=== PATIENT | female | born 1975 | race Asian ===

== ENCOUNTER 2025-02-07 17:18 | Emergency (ER) | payer BC ==
[~2025-02-07] VITALS: Ht 170.2 cm; Wt 70.0 kg
[2025-02-07 17:24] VITALS: BP 133/85; PULSE 77; RESP 16; TEMP 36.7; O2SAT 98
[2025-02-07] MEDS ORDERED: DEXAMETHASONE 0.5MG/5ML ORAL SYR PO ONE (18:00)
[2025-02-07] MEDS: DEXAMETHASONE 10 MG/ML VIAL PO NR (18:03)
[2025-02-07 19:32] LABS: INFLUENZA TYPE A Presumptive Negative (Pres. Neg.)
[2025-02-07 19:33] LABS: INFLUENZA TYPE B Presumptive Negative (Pres. Neg.)
[2025-02-07 19:35] LABS: RESPIRATORY SYNCYTIAL VIRUS Not Detected (Not Detectd)
== END 2025-02-07 18:19 | disposition home or self-care (01) ==
LOC: ER 17:18
DX: H10.9 Unspecified conjunctivitis (principal); B34.9 Viral infection, unspecified; J02.9 Acute pharyngitis, unspecified; Z20.822 Contact with and (suspected) exposure to COVID-19
CPT/HCPCS: 99283; 87426; 87430; 87420; 87070; 87804 ×2; J1100; J8540

== ENCOUNTER → 2025-05-24 | Outpatient (CLI) | payer BC ==
[2025-05-24 08:07] LABS: BASOPHILS % 1.4 % (0.0-2.0); EOSINOPHILS % 4.1 % (0.0-5.0); HEMATOCRIT. 41.8 % (36.0-48.0); HEMOGLOBIN. 14.1 g/dL (12.0-16.0); LYMPHOCYTES % 40.3 % (20.0-50.0); MEAN PLATELET VOLUME 6.9 fl (7.4-10.4); MONOCYTES % 9.2 % (2.0-8.0); NEUTROPHILS % 45.0 % (40.0-76.0); PLATELET 256 x1000/uL (130-400); RED BLOOD CELL COUNT 4.99 mill/uL (4.2-5.4); RED CELL DISTRIBUTION WIDTH 13.5 % (11.6-14.6)
[2025-05-24 08:24] LABS: CREATININE 0.6 mg/dL (0.6-1.0)
[2025-05-24 08:25] LABS: TRIGLYCERIDE 74 mg/dL (0-150); UREA NITROGEN BLOOD 12 mg/dL (9-23)
[2025-05-24 08:26] LABS: ASPARTATE AMINOTRANSFERASE 17 IU/L (<34); LDL CHOLESTEROL 105 mg/dL (5-100)
[2025-05-24 08:27] LABS: BILIRUBIN TOTAL 0.7 mg/dL (0.1-1.0); PROTEIN TOTAL 7.1 g/dL (6.0-8.3)
[2025-05-24 08:29] LABS: T4 FREE 1.12 ng/dL (0.89-1.76)
[2025-05-24 08:40] LABS: VITAMIN B12 SERUM 510 pg/mL (211-911)
== END | disposition home or self-care (01) ==
LOC: LAB 07:15
PROVIDERS: ATTEND Internal Medicine
DX: I10 Essential (primary) hypertension (principal); E11.9 Type 2 diabetes mellitus without complications; E03.9 Hypothyroidism, unspecified; E53.9 Vitamin B deficiency, unspecified; E78.5 Hyperlipidemia, unspecified
CPT/HCPCS: 36415; 80053; 80061; 82607; 83036; 84439; 84443; 85025

== ENCOUNTER → 2025-05-26 | Outpatient (CLI) | payer BC | END | disposition home or self-care (01) | LOC: US 08:01 | PROVIDERS: ATTEND Internal Medicine | DX: D25.1 Intramural leiomyoma of uterus (principal); K82.4 Cholesterolosis of gallbladder; N85.4 Malposition of uterus; R10.9 Unspecified abdominal pain; Z12.31 Encounter for screening mammogram for malignant neoplasm of breast | CPT/HCPCS: 76700; 76830; 76856 ==

== ENCOUNTER → 2025-05-27 | Outpatient (CLI) | payer BC | END | disposition home or self-care (01) | LOC: MAMMO 07:55 | PROVIDERS: ATTEND Internal Medicine | DX: Z12.31 Encounter for screening mammogram for malignant neoplasm of breast (principal); R92.333 Mammographic heterogeneous density, bilateral breasts | CPT/HCPCS: 77063; 77067 ==